=== PATIENT | female | born 1940 | race Caucasian/White ===

== ENCOUNTER 2025-06-25 17:54 | Inpatient (IN) | payer MEDICARE ==
[2025-06-25] MEDS ORDERED: Nitroglycerin 0.4 MG TAB (25 Tab Bottle) SL PRN (19:20)
[2025-06-25] MEDS ORDERED: Ondansetron PF 4 MG/2 ML Vial IVP PRN (19:20)
[2025-06-25] MEDS ORDERED: Acetaminophen 325 MG TAB PO PRN (19:20)
[2025-06-25 19:46] VITALS: BMI 22.0
[2025-06-25] MEDS ORDERED: Glucagon 1 MG/ML KIT IM PRN (19:54)
[2025-06-26] MEDS: Dextrose 50% Abboject 50 ML SYRINGE SLOW IVP PRN (01:21)
[2025-06-26 05:39] LABS: #Basophils Less than 0.03 10x3/uL (0.0-0.2); #Eosinophils 0.10 10x3/uL (0.0-0.7); #Monocytes 0.52 10x3/uL (0.11-0.59); #Neutrophils 2.54 10x3/uL (1.40-6.50); %Basophils 0.4 % (0.0-1.0); %Eosinophils 1.8 % (0.0-10.0); %Lymphocytes 41.9 % (21.0-51.0); %Monocytes 9.5 % (0.0-10.0); %Neutrophils 46.2 % (42.0-75.0); Hematocrit 33.6 % (36.0-47.0); Hemoglobin 11.0 g/dL (12.0-16.0); Mean Corpuscular Hemoglobin 29.3 pg (27.0-31.0); Mean Corpuscular Volume 89.4 fL (78.0-98.0); Platelet Count 278 10x3/uL (130-400); Red Blood Cell (RBC) Count 3.76 mill/uL (4.20-5.40); White Blood Cell (WBC) Count 5.49 10x3/uL (4.8-10.8)
[2025-06-26 06:05] LABS: Anion Gap 13 mmol/L (10-20); BUN (Urea Nitrogen) 11 mg/dL (9.8-20.1); Calc. Creatinine Clearance 57 mL/min (70-130); Calcium 8.7 mg/dL (7.8-10.44); Carbon Dioxide 25 mmol/L (23-31); Chloride 109 mmol/L (98-107); Glucose 98 mg/dL (83-110); Potassium 3.8 mmol/L (3.5-5.1); Sodium 143 mmol/L (136-145)
[2025-06-26] MEDS: Losartan 25 MG TAB PO SCH (08:08)
[2025-06-26] MEDS: Pantoprazole 40 MG DR.TAB PO SCH (08:08)
[2025-06-26] MEDS: Enoxaparin 40 MG (0.4 mL) SYRINGE SC SCH (08:10)
[2025-06-26] MEDS ORDERED: Isosorbide Mononitrate 30 MG ER.TAB.S PO SCH (11:52)
[2025-06-26] MEDS: Isosorbide Mononitrate 30 MG ER.TAB.S PO SCH ×2 (13:06)
[2025-06-26] MEDS: Metoprolol Succinate XL 25 MG ER.TAB PO SCH (13:06)
[2025-06-26] MEDS: Furosemide 20 MG (2 mL) VIAL SLOW IVP SCH (15:25)
[2025-06-26] MEDS: Magnesium Oxide 400 MG TAB PO SCH (20:51)
[2025-06-27 07:33] VITALS: BP 130/58; TEMP 98.4
[2025-06-27] MEDS: Metoprolol Succinate XL 25 MG ER.TAB PO SCH (08:32)
[2025-06-27] MEDS: Aspirin 81 mg Enteric Coated Tablet PO SCH (08:33)
== END 2025-06-27 13:00 | disposition home or self-care (01) | DRG 638 ==
LOC: OBS 18:48 → OBSVTOIN 06-26 16:17
PROVIDERS: ADMIT Hospitalist; ATTEND Family Medicine
DX: E11.649 Type 2 diabetes mellitus with hypoglycemia without coma (principal); I50.32 Chronic diastolic (congestive) heart failure; R07.9 Chest pain, unspecified; I11.0 Hypertensive heart disease with heart failure; E78.5 Hyperlipidemia, unspecified; Z88.5 Allergy status to narcotic agent; Z98.890 Other specified postprocedural states; E11.65 Type 2 diabetes mellitus with hyperglycemia
CPT/HCPCS: 36415; 36416; 80048; 83880; 85025; G0378; J1650; J1940; J7042; J7999